=== PATIENT | male | born 1955 | race Caucasian/White ===

== ENCOUNTER 2018-11-20 23:34 | Emergency (ER) | payer BC ==
[~2018-11-20] VITALS: Ht 175.3 cm; Wt 77.7 kg
[~2018-11-20 23:34] MED LIST: FLOMAX 0.40.4 MG/CAP PO; VITAMIN D 50,1.25 MG PO; ZOCOR 40MG40 MG PO
[2018-11-20 23:38] VITALS: TEMP 98.9
[2018-11-20] MEDS ORDERED: PRAVACHOL 40MG40 MG PO (23:44)
[2018-11-21 00:05] LABS: BASO % 0.3 % (0.0-2.0); EOS % 0.3 % (0-4.0); GRAN # 10.8 (1.4-6.5); GRAN % 88.3 % (42.2-75.2); HEMATOCRIT 42.7 % (42.0-52.0); HEMOGLOBIN 14.6 g/dl (13.5-18.0); LYMPH # 0.9 (1.2-3.4); LYMPH % 7.6 % (20.0-51.0); MEAN CELL VOLUME 91 fl (80.0-100.0); MEAN CORPUSCULAR HEMOGLOBIN 31 pg (27.0-31.0); MEAN CORPUSCULAR HGB CONC 34 g/dl (33.0-37.0); MEAN PLATELET VOLUME 8.8 fl (7.4-10.4); MONO # 0.4 (0.1-0.6); MONO % 3.3 % (1.7-9.3); PLATELET COUNT 289 K/mm3 (130-400); RED BLOOD COUNT 4.72 M/mm3 (4.20-5.60); REDCELL DISTRIBUTION WIDTH-CV 12.7 % (11.5-14.5)
[2018-11-21 00:33] LABS: ALANINE AMINOTRANSFERASE 39 U/L (21-72); ALBUMIN 4.6 gm/dL (3.5-5.0); ALKALINE PHOSPHATASE 88 U/L (50-136); ANION GAP 10 mmol/L (7-16); AST,SGOT 30 U/L (15-37); BILIRUBIN,TOTAL 0.3 mg/dL (0.0-1.0); BLOOD UREA NITROGEN 16 mg/dL (9-20); CALCIUM 9.3 mg/dL (8.4-10.2); CARBON DIOXIDE 23 mmol/L (22-30); CHLORIDE 107 mmol/L (98-107); GLUCOSE 107 mg/dL (74-106); LIPASE 134 U/L (23-300); POTASSIUM 4.4 mmol/L (3.4-5.0); SODIUM 140 mmol/L (137-145); TOTAL PROTEIN 7.6 gm/dL (6.4-8.2)
[2018-11-21 00:34] LABS: C-REACTIVE PROTEIN < 0.5 mg/dL (0.0-0.9)
[2018-11-21 00:44] LABS: TROPONIN-I < 0.012 ng/mL (0.000-0.034)
[2018-11-21] MEDS ORDERED: CARAFATE 1GM1 G PO (02:25)
[2018-11-21] MEDS ORDERED: PROTONIX 40MG T40 MG PO (02:25)
[2018-11-21 02:33] VITALS: BP 154/93; PULSE 88
== END 2018-11-21 02:33 | disposition home or self-care (01) ==
LOC: COL.ER 23:34
PROVIDERS: Emergency Medicine
DX: K21.0 Gastro-esophageal reflux disease with esophagitis (principal)
CPT/HCPCS: C9113; J1170; J2060; J2405; J7030

== ENCOUNTER 2018-11-29 13:05 | Day surgery (SDC) | payer BC ==
[~2018-11-29] VITALS: Ht 175.3 cm; Wt 80.4 kg
[~2018-11-29 13:05] MED LIST changes: +CARAFATE 1GM1 G PO; +PRAVACHOL 40MG40 MG PO; +PROTONIX 40MG T40 MG PO
[2018-11-29] MEDS ORDERED: PRINIVIL10 MG PO (13:34)
[2018-11-29 13:49] VITALS: BP 131/86; PULSE 74; TEMP 98.8
[2018-11-29 15:02] VITALS: BP 115/88; PULSE 78; TEMP 97.8
--- NOTE | 2018-11-29 15:02 | NUR ---
PATIENT BACK FROM ENDO SUITE. NO COMPLAINTS. AMBULATED TO CHAIR WITH LITTLE ASSIST. AWAKE AND ALERT. VS APPEAR STABLE. WILL CONTINUE TO MONITOR. WILL GET PATIENT FOOD AND DRINK.
[2018-11-29 15:15] VITALS: BP 121/79; PULSE 64
[2018-11-29 15:25] VITALS: BP 125/83; PULSE 66
--- NOTE | 2018-11-29 15:25 | NUR ---
PATIENT ALERT AND ORIENTED, TALKING TO SON ON PHONE. NO COMPLAINTS WITH FOOD AND DRINK. VS APPEAR STABLE. WILL CONTINUE TO MONITOR.
--- NOTE | 2018-11-29 15:26 | NUR ---
SON NOW AT BEDSIDE. PATIENT REQUESTING TO GET DRESSED. WILL TAKE OUT IV AND ALLOW PATIENT TO GET DRESSED. NO COMPLAINTS OF PAIN OR N/V. WILL WORK ON DISCHARGE PAPERWORK AND DISCHARGE PATIENT WHEN DR HAS SEEN PATIENT.
[2018-11-29 18:22] VITALS: BP 110/71; PULSE 62
== END 2018-11-29 15:40 | disposition home or self-care (01) ==
LOC: SDCO 13:05
DX: Z12.11 Encounter for screening for malignant neoplasm of colon (principal); Z80.0 Family history of malignant neoplasm of digestive organs; D12.2 Benign neoplasm of ascending colon; D12.3 Benign neoplasm of transverse colon; K22.2 Esophageal obstruction; K21.9 Gastro-esophageal reflux disease without esophagitis; R13.12 Dysphagia, oropharyngeal phase
CPT/HCPCS: C1726; J2250; J2405; J3010; J7030